=== PATIENT | female | born 1960 | race Caucasian/White ===

== ENCOUNTER 2021-03-01 07:05 | Inpatient (IN) | payer OTHER ==
[2021-03-01] VITALS (8 sets, daily range): BP systolic 112–141; BP diastolic 57–67
[~2021-03-01] VITALS: Ht 180.3 cm; Wt 83.2 kg
[2021-03-01 07:50] LABS: CLARITY,URINE SLIGHTLY CLOUDY (Clear); COLOR,URINE AMBER (Yellow); GLUCOSE, URINE NEGATIVE (Neg); KETONES,URINE NEGATIVE (Neg); LEUKOCYTE ESTERASE ,URINE TRACE (Neg); OCCULT BLOOD,URINE LARGE (Neg); PH,URINE 5.5 (4.8-8.0); PROTEIN,URINE >=300 mg/dl (Neg); UROBILINOGEN,URINE 0.2 E.U/dL (0.2-1.0)
[2021-03-01 07:55] LABS: UA COLLECTION TYPE CLN CATCH MIDSTREAM
[2021-03-01 07:57] LABS: BACTERIA,URINE FEW /HPF (Neg); NITRITES, URINE NEGATIVE (Neg); RBC,URINE 50-100 /HPF (0-2)
[2021-03-01 07:58] LABS: MUCUS STRANDS FEW /LPF (Neg); SQUAMOUS EPITHELIAL CELL,UR FEW /LPF (FEW)
[2021-03-01] MEDS ORDERED: iohexol 350MG/ML 100ml bottle IV ONE (09:07)
[2021-03-01 09:47] LABS: BASOPHILS % (AUTO) 0.4 % (0-1); EOSINOPHILS % (AUTO) 0.2 % (0-6); HEMATOCRIT 35.7 % (35.0-45.0); HEMOGLOBIN 12.1 g/dl (12.0-16.0); LYMPHOCYTES # (AUTO) 0.9 X10'3 (1.1-4.8); LYMPHOCYTES % (AUTO) 8.4 % (21-51); MEAN CORPUSCULAR HEMOGLOBIN 31.3 PG (27.0-31.0); MEAN CORPUSCULAR HGB CONC 33.9 g/dL (33.0-36.5); MEAN CORPUSCULAR VOLUME 92.3 FL (78-98); MEAN PLATELET VOLUME 7.6 FL (7.4-10.4); MONOCYTES # (AUTO) 0.4 X10'3 (0-0.9); MONOCYTES % (AUTO) 4.2 % (2-12); NEUTROPHILS % (AUTO) 86.8 % (42-75); PLATELET COUNT 331 X10'3 (140-440); RED BLOOD COUNT 3.87 X10'6 (4.20-5.60); RED CELL DISTRIBUTION WIDTH 13.1 % (11.5-14.5); WHITE BLOOD COUNT 10.4 X10'3 (4.5-11.0)
[2021-03-01 10:11] LABS: ALANINE AMINOTRANSFERASE 38 U/L (12-78); ALBUMIN/GLOBULIN RATIO 1.1 (1.1-1.5); ALKALINE PHOSPHATASE 99 IU/L (46-116); ANION GAP 8 (8-16); ASPARTATE AMINO TRANSFERASE 22 U/L (10-37); BILIRUBIN,TOTAL 0.3 MG/DL (0.1-1.0); BLOOD UREA NITROGEN 20 MG/DL (7-18); BUN/CREATININE RATIO 24.7 (6.6-38.0); CALCIUM 9.1 MG/DL (8.5-10.1); CHLORIDE 106 MMOL/L (99-107); CREATININE 0.81 MG/DL (0.40-0.90); GLUCOSE 109 MG/DL (70-104); SODIUM 142 MMOL/L (135-145); TOTAL CARBON DIOXIDE 28.5 MMOL/L (24-32); TOTAL PROTEIN 7.7 G/DL (6.4-8.2); eGFR 72 ML/MIN
[2021-03-01] MEDS ORDERED: NO HOME MEDS (12:57)
[2021-03-01] MEDS ORDERED: morphine 2 MG/ML inj. syringe IV PRN (13:10)
[2021-03-01] MEDS ORDERED: acetaminophen 325mg tablet PO PRN (13:10)
[2021-03-01] MEDS ORDERED: ondansetron/PF 4mg/2ml inj IV PRN (13:10)
[2021-03-01] MEDS ORDERED: mag hydrox/Alum hydrox/simeth 30ml oral suspension PO PRN (13:10)
[2021-03-01] MEDS ORDERED: magnesium hydroxide 30ml (MOM) UD suspension PO PRN (13:10)
[2021-03-01] MEDS: normal saline 1000ml 1,000 ML IV SCH ×2 (13:22→23:10)
--- NOTE | 2021-03-01 13:30 | NUR ---
DR العلي AT BEDSIDE
[2021-03-01] MEDS ORDERED: tetracaine 1% (10mg/ml) pres. free inj. INTSP ONE (13:35)
[2021-03-01 13:47] LABS: PARTIAL THROMBOPLASTIN TIME 27 SECONDS (22-32)
[2021-03-01] MEDS ORDERED: iohexol 300mg/ml 100ml inj. ONE ×2 (13:47→15:10)
[2021-03-01] MEDS ORDERED: heparin 1,000 UNITS/NS 500ml 500 ML ONE (13:47)
[2021-03-01] MEDS ORDERED: fentaNYL/PF 50MCG/1 ML 2ML syringe ONE ×2 (13:47→14:29)
[2021-03-01] MEDS ORDERED: midazolam 1 mg/ML 2ml injection ONE ×2 (13:47→14:29)
[2021-03-01 16:55] LABS: HEMATOCRIT 33.4 % (35.0-45.0); HEMOGLOBIN 11.3 g/dl (12.0-16.0); MEAN CORPUSCULAR HEMOGLOBIN 30.8 PG (27.0-31.0); MEAN CORPUSCULAR HGB CONC 33.7 g/dL (33.0-36.5); MEAN CORPUSCULAR VOLUME 91.5 FL (78-98); MEAN PLATELET VOLUME 7.6 FL (7.4-10.4); PLATELET COUNT 309 X10'3 (140-440); RED BLOOD COUNT 3.66 X10'6 (4.20-5.60); RED CELL DISTRIBUTION WIDTH 12.9 % (11.5-14.5); WHITE BLOOD COUNT 9.5 X10'3 (4.5-11.0)
--- NOTE | 2021-03-01 18:33 | NUR ---
Problems reprioritized. Patient report given, questions answered & plan of care reviewed with Alaan CARRANZA.
[2021-03-02 01:05] LABS: HEMATOCRIT 30.3 % (35.0-45.0); HEMOGLOBIN 10.5 g/dl (12.0-16.0); MEAN CORPUSCULAR HEMOGLOBIN 31.8 PG (27.0-31.0); MEAN CORPUSCULAR HGB CONC 34.6 g/dL (33.0-36.5); MEAN CORPUSCULAR VOLUME 91.8 FL (78-98); MEAN PLATELET VOLUME 7.7 FL (7.4-10.4); PLATELET COUNT 288 X10'3 (140-440); WHITE BLOOD COUNT 8.1 X10'3 (4.5-11.0)
[2021-03-02 01:24] VITALS: BP 94/47
[2021-03-02 02:00] VITALS: BP 123/56
[2021-03-02 07:00] VITALS: BP 98/50
[2021-03-02 07:18] LABS: BASOPHILS % (AUTO) 0.5 % (0-1); EOSINOPHILS # (AUTO) 0.1 X10'3 (0-0.9); HEMATOCRIT 30.4 % (35.0-45.0); HEMOGLOBIN 10.5 g/dl (12.0-16.0); LYMPHOCYTES % (AUTO) 26.4 % (21-51); MEAN CORPUSCULAR HGB CONC 34.7 g/dL (33.0-36.5); MEAN CORPUSCULAR VOLUME 92.1 FL (78-98); MEAN PLATELET VOLUME 7.5 FL (7.4-10.4); MONOCYTES # (AUTO) 0.6 X10'3 (0-0.9); MONOCYTES % (AUTO) 8.1 % (2-12); NEUTROPHILS # (AUTO) 4.8 X10'3 (1.8-7.7); PLATELET COUNT 280 X10'3 (140-440); RED CELL DISTRIBUTION WIDTH 12.7 % (11.5-14.5); WHITE BLOOD COUNT 7.5 X10'3 (4.5-11.0)
[2021-03-02 07:29] LABS: ALBUMIN 3.1 G/DL (3.4-5.0); ANION GAP 9 (8-16); BLOOD UREA NITROGEN 13 MG/DL (7-18); BUN/CREATININE RATIO 16.7 (6.6-38.0); CALCIUM 8.3 MG/DL (8.5-10.1); CHLORIDE 108 MMOL/L (99-107); CREATININE 0.78 MG/DL (0.40-0.90); GLUCOSE 95 MG/DL (70-104); POTASSIUM 3.8 MMOL/L (3.5-5.1); SODIUM 143 MMOL/L (135-145); eGFR 75 ML/MIN
[2021-03-02] MEDS: normal saline 1000ml 1,000 ML IV SCH (09:10)
[2021-03-02] MEDS ORDERED: iohexol 300mg/ml 100ml inj. ONE (09:49)
--- NOTE | 2021-03-02 10:39 | NUR ---
Page Sent promotional table spacer PAGER ID: [phone] MESSAGE: [id number]. Hulst. Dr. Flood from [facility] would like you to get in touch with her after CT scan today. She is part of team that did her surgery. Her cell # is [phone]. Amisha [id number]
[2021-03-02 11:00] VITALS: BP 116/44
[2021-03-02 11:56] LABS: HEMATOCRIT 30.2 % (35.0-45.0); HEMOGLOBIN 10.3 g/dl (12.0-16.0); MEAN CORPUSCULAR HEMOGLOBIN 31.5 PG (27.0-31.0); MEAN CORPUSCULAR HGB CONC 34.1 g/dL (33.0-36.5); MEAN CORPUSCULAR VOLUME 92.5 FL (78-98); PLATELET COUNT 282 X10'3 (140-440); RED BLOOD COUNT 3.27 X10'6 (4.20-5.60); RED CELL DISTRIBUTION WIDTH 13.2 % (11.5-14.5)
--- NOTE | 2021-03-02 14:07 | NUR ---
Page Sent promotional table spacer PAGER ID: [phone] MESSAGE: [id number] Hulst. Patient did not come in with forman it was placed in the ED. Amisha [id number]
--- NOTE | 2021-03-02 15:17 | NUR ---
forman catheter removed
--- NOTE | 2021-03-02 15:31 | NUR ---
patient urinated after forman removal and passed large blood clot and c/o of burning while urinating
[2021-03-02 16:15] LABS: HEMATOCRIT 30.7 % (35.0-45.0); HEMOGLOBIN 10.3 g/dl (12.0-16.0); MEAN CORPUSCULAR HEMOGLOBIN 31.1 PG (27.0-31.0); MEAN CORPUSCULAR HGB CONC 33.5 g/dL (33.0-36.5); MEAN CORPUSCULAR VOLUME 92.7 FL (78-98); MEAN PLATELET VOLUME 7.5 FL (7.4-10.4); PLATELET COUNT 276 X10'3 (140-440); RED BLOOD COUNT 3.31 X10'6 (4.20-5.60); RED CELL DISTRIBUTION WIDTH 13.1 % (11.5-14.5); WHITE BLOOD COUNT 10.2 X10'3 (4.5-11.0)
--- NOTE | 2021-03-02 16:36 | NUR ---
Page Sent promotional table spacer PAGER ID: [phone] MESSAGE: [id number] Hulst. Huff removed. Patient voided small amount and c/o intense burning sensation when she voids. Patient was in tears. Post void bladder scan showed 264 left in bladder. Patient also passed large blood clot. Amisha [id number]
--- NOTE | 2021-03-02 17:39 | NUR ---
Patient voided large amount and had a decrease in burning and passed another clot. After consulting with Dr. Guzman patient is safe to dc. PIV was removed with cannula intact. No new RX. DC instructions and warning s/s were reviewed with the patient and her and they verbalized understanding. Patient went home with . 1500 vitals 99.4 temp 80 HR, 15 RR, BP 145/61. sat 95% on room air. Patient alert oriented and appropriate at time of dc.
== END 2021-03-02 17:20 | disposition home or self-care (01) | DRG 700 ==
LOC: ER 07:05 → ED HOLD 13:06 → EDBEDREQ 14:25 → PCU 3S 15:56
PROVIDERS: ADMIT Family Medicine; ATTEND Family Medicine
PROC: B4171ZZ Fluoroscopy of Left Renal Artery using Low Osmolar Contrast (ICD-10-PCS; principal; 2021-03-01)
PROC: B41F1ZZ Fluoroscopy of Right Lower Extremity Arteries using Low Osmolar Contrast (ICD-10-PCS; 2021-03-01)
PROC: B32T1ZZ Computerized Tomography (CT Scan) of Left Pulmonary Artery using Low Osmolar Contrast (ICD-10-PCS; 2021-03-01)
PROC: B3201ZZ Computerized Tomography (CT Scan) of Thoracic Aorta using Low Osmolar Contrast (ICD-10-PCS; 2021-03-01)
PROC: B32S1ZZ Computerized Tomography (CT Scan) of Right Pulmonary Artery using Low Osmolar Contrast (ICD-10-PCS; 2021-03-01)
PROC: B4201ZZ Computerized Tomography (CT Scan) of Abdominal Aorta using Low Osmolar Contrast (ICD-10-PCS; 2021-03-01)
PROC: B4241ZZ Computerized Tomography (CT Scan) of Superior Mesenteric Artery using Low Osmolar Contrast (ICD-10-PCS; 2021-03-01)
PROC: B4281ZZ Computerized Tomography (CT Scan) of Bilateral Renal Arteries using Low Osmolar Contrast (ICD-10-PCS; 2021-03-01)
PROC: B4211ZZ Computerized Tomography (CT Scan) of Celiac Artery using Low Osmolar Contrast (ICD-10-PCS; 2021-03-01)
PROC: BW211ZZ Computerized Tomography (CT Scan) of Abdomen and Pelvis using Low Osmolar Contrast (ICD-10-PCS; 2021-03-02)
DX: I72.2 Aneurysm of renal artery (principal); R31.0 Gross hematuria; R33.9 Retention of urine, unspecified; Z90.5 Acquired absence of kidney; Z90.710 Acquired absence of both cervix and uterus; Z88.5 Allergy status to narcotic agent
CPT/HCPCS: 36251; 36415; 51702; 71275; 74174; 74177; 80048; 80053; 81001; 85025; 85027; 85610; 85730; 87081; 87088; 99152; 99153; 99285; A6213; C1760; C1769; C1894; G0378; J1644; J2250; J3010; J7030; Q9967

== ENCOUNTER 2021-03-14 15:25 | Emergency (ER) | payer OTHER ==
[~2021-03-14] VITALS: Ht 180.3 cm; Wt 85.0 kg
[~2021-03-14 15:25] MED LIST: NO HOME MEDS
[2021-03-14 16:11] LABS: BASOPHILS % (AUTO) 0.2 % (0-1); EOSINOPHILS % (AUTO) 0.2 % (0-6); HEMATOCRIT 34.3 % (35.0-45.0); HEMOGLOBIN 11.6 g/dl (12.0-16.0); LYMPHOCYTES # (AUTO) 1.4 X10'3 (1.1-4.8); LYMPHOCYTES % (AUTO) 11.5 % (21-51); MEAN CORPUSCULAR HGB CONC 33.8 g/dL (33.0-36.5); MEAN CORPUSCULAR VOLUME 91.7 FL (78-98); MEAN PLATELET VOLUME 7.4 FL (7.4-10.4); MONOCYTES # (AUTO) 1.1 X10'3 (0-0.9); MONOCYTES % (AUTO) 9.7 % (2-12); NEUTROPHILS # (AUTO) 9.2 X10'3 (1.8-7.7); NEUTROPHILS % (AUTO) 78.4 % (42-75); PLATELET COUNT 337 X10'3 (140-440); RED BLOOD COUNT 3.74 X10'6 (4.20-5.60); RED CELL DISTRIBUTION WIDTH 12.7 % (11.5-14.5); WHITE BLOOD COUNT 11.7 X10'3 (4.5-11.0)
[2021-03-14 16:26] LABS: ALANINE AMINOTRANSFERASE 15 U/L (12-78); ALBUMIN 3.6 G/DL (3.4-5.0); ALBUMIN/GLOBULIN RATIO 0.9 (1.1-1.5); ALKALINE PHOSPHATASE 90 IU/L (46-116); ANION GAP 10 (8-16); ASPARTATE AMINO TRANSFERASE 11 U/L (10-37); BILIRUBIN,TOTAL 0.4 MG/DL (0.1-1.0); BLOOD UREA NITROGEN 19 MG/DL (7-18); BUN/CREATININE RATIO 19.4 (6.6-38.0); CALCIUM 8.8 MG/DL (8.5-10.1); CHLORIDE 102 MMOL/L (99-107); CREATININE 0.98 MG/DL (0.40-0.90); GLUCOSE 107 MG/DL (70-104); SODIUM 139 MMOL/L (135-145); TOTAL CARBON DIOXIDE 27.4 MMOL/L (24-32); TOTAL PROTEIN 7.4 G/DL (6.4-8.2); eGFR 58 ML/MIN
[2021-03-14 16:37] LABS: CLARITY,URINE SLIGHTLY CLOUDY (Clear); COLOR,URINE YELLOW (Yellow); GLUCOSE, URINE NEGATIVE (Neg); KETONES,URINE NEGATIVE (Neg); LEUKOCYTE ESTERASE ,URINE MODERATE (Neg); NITRITES, URINE NEGATIVE (Neg); OCCULT BLOOD,URINE TRACE-INTACT (Neg); PH,URINE 6.5 (4.8-8.0); PROTEIN,URINE NEGATIVE (Neg); UROBILINOGEN,URINE 0.2 E.U/dL (0.2-1.0)
[2021-03-14 16:51] LABS: UA COLLECTION TYPE CLN CATCH MIDSTREAM
[2021-03-14 16:52] LABS: BACTERIA,URINE NONE SEEN /HPF (Neg); MUCUS STRANDS FEW /LPF (Neg); RBC,URINE 0-2 /HPF (0-2); SQUAMOUS EPITHELIAL CELL,UR FEW /LPF (FEW); TRANSITIONAL EPI CELLS,URINE FEW /HPF
[2021-03-14] MEDS ORDERED: acetaminophen 325mg tablet PO ONE (19:15)
[2021-03-14] MEDS ORDERED: normal saline 1000ML IV soln IVB ONE (19:35)
[2021-03-14] MEDS ORDERED: CefTRIAXone/D5W-Rocephin 1gm 50 ML IV ONE (19:35)
[2021-03-14 20:46] VITALS: BP 110/58
== END 2021-03-14 20:47 | disposition home or self-care (01) ==
LOC: ER 15:27
DX: N39.0 Urinary tract infection, site not specified (principal); Z20.822 Contact with and (suspected) exposure to COVID-19; R50.9 Fever, unspecified; R05 Cough; R51.9 Headache, unspecified; R21 Rash and other nonspecific skin eruption; Z98.890 Other specified postprocedural states; Z88.5 Allergy status to narcotic agent; Z88.8 Allergy status to other drugs, medicaments and biological substances
CPT/HCPCS: 36415; 71045; 74176; 80053; 81001; 83605; 84145; 85025; 87040; 87077; 87088; 87186; 87635; 96365; 99285; C9803; J0696; J7030

== ENCOUNTER 2025-03-23 21:14 | Emergency (ER) | payer OTHER ==
[~2025-03-23] VITALS: Ht 182.9 cm; Wt 90.0 kg
[2025-03-23 21:17] VITALS: BP 136/84; PULSE 88; RESP 17; O2SAT 99
--- NOTE | 2025-03-23 22:06 | Physician Documentation ---
History of Present Illness ~ Chief Complaint: Toe pain Stated Complaint: TOE PAIN Time Seen by MD: 22:03 Primary Medical Doctor: Dr. Pedroza, [facility] HPI 65-year-old female presents to the ED with a complaint of right great toe pain after stubbing her toe this evening. States she also was requesting a tetanus shot. Day of Onset: Mar 23, 2025 Tetanus witin 5 years: No Medication Reconciliation Allergies: Coded Allergies: codeine (Unverified Allergy, Unknown, 03/23/25) lidocaine (Unverified Allergy, Unknown, 03/23/25) ALLERGIC TO THE FILLERS oxycodone (Unverified Allergy, Unknown, 03/23/25) Miscellaneous Medications Home Med List (No Home Medications), (Reported) Past Medical History Past Medical History: No Pertinent History, *RENAL/* Past Surgical History: other Other Past Surgical History: Left partial nephrectomy Alcohol Use: None Drug Use: none Lives In: Home Physical Exam Vital Signs: Temperature: 97.8, Source: Oral, Heart Rate: 88, Respiratory Rate: 17, BP: 136/84, Pulse Oximetry: 99, Weight: 90.000 Physical Exam General: Alert, no apparent distress. Extremities: Normal range of motion displaced right toenail with some inflammation. No deformity Neurologic: Oriented x4. Psychiatric: Normal mood and affect. Skin: Normal color, warm and dry. No edema, no ecchymosis. Progress Results/Orders Results/Orders Orders - LUDWIG [employer] PAPER PATTERN FOLDER Toe(S) (03/23/25 22:06) Completed Orders - LUDWIG [employer] PAPER PATTERN FOLDER Tetanus/Pertuss/Diph Acell/Pf (Boostrix (03/23/25 22:15) Medications Received in ER Medications (Trade) Dose Ordered Sig/Dimitri Route PRN Reason Start Time Stop Time Status Last Admin Dose Admin (Boostrix vaccine syringe) 0.5 ml ONCE ONCE IMVAC 03/23/25 22:15 03/23/25 22:16 DC 03/23/25 22:28 0.5 ML Vital Signs 03/23/25 03/23/25 21:17 23:14 Temp 97.8 97.8 Pulse 88 Resp 17 B/P (MAP) 136/84 Pulse Ox 99 Departure Disposition: 01 HOME / SELF CARE / HOMELESS Impression: Primary Impression: Pain of toe Condition: Stable Discharge Instructions: Toe Fracture, [id number] Referrals: NO PRIMARY CARE PROVIDER (PCP) Education Educated: Patient Educated regarding: diagnosis Signature Scribe Signature: vv Attestation: Scribed for Ludwig Hair Customer Service Security Officer by Ludwig Marinelli NP . 03/23/25 22:13 LUDWIG HAIR NP Mar 23, 2025 22:06
[2025-03-23] MEDS: TETanus/Pertussis (Acell)/Diphther VAC/PF (Tdap-Adult) 0.5ml syringe IMVAC ONE (22:28)
[2025-03-23 23:14] VITALS: TEMP 97.8
== END 2025-03-23 23:15 | disposition left against medical advice (07) ==
LOC: ER 21:14
DX: M79.674 Pain in right toe(s) (principal); Z88.5 Allergy status to narcotic agent; W22.8XXA Striking against or struck by other objects, initial encounter; Y93.89 Activity, other specified; Y92.89 Other specified places as the place of occurrence of the external cause; Y99.8 Other external cause status
CPT/HCPCS: 90471; 90715; 99283